=== PATIENT | male | born 1945 | race Caucasian/White ===

== ENCOUNTER → 2020-04-22 | Outpatient (CLI) | payer OTHER, MEDICARE ==
[2020-04-22 13:53] LABS: HEMATOCRIT 42.3 % (42.0-52.0); HEMOGLOBIN 14.6 gm/dL (14.0-18.0); MCH 32.3 pg (26.0-34.0); MCHC 34.5 g/dL (28.0-37.0); MCV 93.7 fL (80.0-100.0); RBC 4.51 mil/uL (4.50-6.00); RDW 13.3 % (10.5-14.5); WBC 5.2 thou/uL (4.0-11.0)
--- NOTE | 2020-04-22 13:55 | EKG ---
[facility] [place] [address] ELECTROCARDIOGRAM REPORT Name: WILBER AVENDANO Room #: REG CLI M.R.#: [id number] Admission: 04/22/20 Attend Phys: Aurelio North MD Discharge: Date of : 45 Report #: [id number] THIS REPORT FOR: cc: Marvel Borja MD,Marvel Rutherford,Arthur CEDENO [facility] ~ THIS REPORT FOR: //name// [facility] Test Date: 2020-04-22 Test Time: 12:52:09 Pat Name: WILBER AVENDANO Department: Room: Gender: Limo Driver: Brigid GARNER : 1945 Requested By: Aurelio North Order Number: [id number] MD: Arthur Rutherford Measurements Intervals [place] Rate: 81 P: 40 KS: 128 QRS: 5 QRSD: 81 T: -90 QT: 371 QTc: 431 Interpretive Statements Sinus rhythm Atrial premature complex Borderline T abnormalities, inferior leads No previous ECG available for comparison Electronically Signed On 04-22-2020 13:55:38 CDT by Arthur Rutherford [email or web address] <ELECTRONICALLY SIGNED> By: Arthur Rutherford MD, FACC 04/22/20 1355 1252 1252 Arthur Rutherford MD, FAC /EPI
[2020-04-22 13:58] LABS: CALCIUM 9.1 mg/dL (8.5-10.1); CREATININE 0.8 mg/dL (0.7-1.3); POTASSIUM 3.7 mmol/L (3.5-5.1)
== END ==
LOC: CV 12:31
PROVIDERS: ATTEND Ophthalmology
DX: Z01.812 Encounter for preprocedural laboratory examination (principal); Z01.810 Encounter for preprocedural cardiovascular examination; I10 Essential (primary) hypertension